=== PATIENT | male | born 1980 | race Two or more races ===

== ENCOUNTER → 2018-09-03 | Outpatient (CLI) | payer OTHER ==
[2018-09-03 17:03] LABS: BASO % 1 % (0-3); EOS # 0.1 x10^3/uL (0.0-0.7); EOS % 2 % (0-3); HEMATOCRIT 38.4 % (39.0-53.0); HEMOGLOBIN 12.1 g/dL (13.0-17.5); LYMPH # 1.9 x10^3/uL (1.0-4.8); LYMPH % 50 % (24-48); MEAN CORPUSCULAR HEMOGLOBIN 19 pg (25-35); MEAN CORPUSCULAR HGB CONC 32 g/dL (31-37); MEAN CORPUSCULAR VOLUME 60 fL (79-100); MONO # 0.3 x10^3/uL (0.0-1.1); MONO % 7 % (0-9); NEUT # 1.5 x10^3uL (1.8-7.7); NEUT % 41 % (31-73); PLATELET COUNT 201 x10^3/uL (140-400); RED BLOOD COUNT 6.35 x10^6/uL (4.30-5.70); RED CELL DISTRIBUTION WIDTH 16.7 % (11.5-14.5); WHITE BLOOD COUNT 3.8 x10^3/uL (4.0-11.0)
[2018-09-03 17:16] LABS: ALBUMIN 4.2 g/dL (3.4-5.0); ALBUMIN/GLOBULIN RATIO 1.2 (1.0-1.7); CALCIUM 9.4 mg/dL (8.5-10.1); CREATININE 1.2 mg/dL (0.7-1.3); GFR 67.4; TOTAL BILIRUBIN 0.9 mg/dL (0.2-1.0); TOTAL PROTEIN 7.6 g/dL (6.4-8.2)
[2018-09-04 00:18] LABS: HYPOCHROMIA MOD; MICROCYTOSIS SLIGHT; OVALOCYTES OCC; PLT ESTIMATE ADEQUATE (ADEQUATE); POLYCHROMASIA SLIGHT; SCHISTOCYTES OCC
== END | disposition home or self-care (01) ==
LOC: SPEC 16:40 → EEVIPCON 16:40
PROVIDERS: ATTEND Family Medicine
DX: Z02.1 Encounter for pre-employment examination (principal)
CPT/HCPCS: 36415; 80053; 84484; 85025; 85379

== ENCOUNTER → 2018-09-10 | Outpatient (CLI) | payer OTHER ==
[2018-09-10 14:39] LABS: CALCIUM 9.5 mg/dL (8.5-10.1)
[2018-09-10 14:40] LABS: GFR 83.2; POTASSIUM 4.5 mmol/L (3.5-5.1)
[2018-09-10 14:45] LABS: WHITE BLOOD COUNT 3.6 x10^3/uL (4.0-11.0)
[2018-09-10 14:46] LABS: HEMATOCRIT 38.6 % (39.0-53.0); HEMOGLOBIN 11.8 g/dL (13.0-17.5); MEAN CORPUSCULAR HEMOGLOBIN 19 pg (25-35); MEAN CORPUSCULAR HGB CONC 31 g/dL (31-37); MEAN CORPUSCULAR VOLUME 61 fL (79-100); PLATELET COUNT 181 x10^3/uL (140-400); RED BLOOD COUNT 6.31 x10^6/uL (4.30-5.70); RED CELL DISTRIBUTION WIDTH 16.8 % (11.5-14.5)
[2018-09-10 14:47] LABS: BASO % 1 % (0-3); EOS % 1 % (0-3); LYMPH % 56 % (24-48); MONO # 0.3 x10^3/uL (0.0-1.1); MONO % 8 % (0-9); NEUT # 1.2 x10^3uL (1.8-7.7); NEUT % 34 % (31-73)
[2018-09-10 15:23] LABS: OVALOCYTES PRESENT; PLT ESTIMATE ADEQUATE (ADEQUATE); TEAR DROP CELLS PRESENT
[2018-09-10 15:24] LABS: MICROCYTOSIS MOD; PLATELET CLUMP PRESENT
[2018-09-10 15:25] LABS: HYPOCHROMIA SLIGHT; POIKILOCYTOSIS MOD
[2018-09-10 15:27] LABS: POLYCHROMASIA PRESENT
[2018-09-10 15:30] LABS: ANISOCYTOSIS SLIGHT
== END | disposition home or self-care (01) ==
LOC: EEVIPCON 14:05 → SPEC 14:05
DX: R07.9 Chest pain, unspecified (principal)
CPT/HCPCS: 36415; 80048; 83880; 85025